=== PATIENT | female | born 1975 | race Hispanic/Latino ===

== ENCOUNTER 2021-10-20 20:30 | Emergency (ER) | payer SELFPAY ==
[2021-10-20] MEDS ORDERED: Acetaminophen 500 MG TAB ONE (22:51)
[2021-10-20] MEDS ORDERED: Ibuprofen 200 MG TAB ONE (22:52)
[2021-10-21 11:49] LABS: Chlamydia by PCR Not Detected (NotDetected); GC by PCR Not Detected (NotDetected)
== END 2021-10-21 02:49 | disposition home or self-care (01) ==
LOC: CSHERS 20:30
DX: N94.6 Dysmenorrhea, unspecified (principal); N88.8 Other specified noninflammatory disorders of cervix uteri; D64.9 Anemia, unspecified; Z79.899 Other long term (current) drug therapy
CPT/HCPCS: 76856; 87480; 87491; 87510; 87591; 87660